=== PATIENT | male | born 1980 | race Caucasian/White ===

== ENCOUNTER 2024-02-25 19:11 | Emergency (ER) | payer OTHER ==
--- NOTE | 2024-02-25 20:57 | RAD REPORT ---
EXAM DESCRIPTION: RAD - Shoulder Left 2 View - 02/25/2024 7:47 pm CLINICAL HISTORY: fall, swelling;Pain COMPARISON: No comparisons TECHNIQUE: Internal and external rotation views of the left shoulder were obtained. FINDINGS: There is no fracture or dislocation. AC joint mild degenerative changes. No acute or suspi cious findings. IMPRESSION: No acute osseus abnormality. Mild left AC joint degenerative changes.
--- NOTE | 2024-02-25 21:00 | EDPHYS ---
Physician Documentation [facility] Name: Shivam Vu Age: 43 yrs Sex: Male : 1980 Arrival Date: 02/25/2024 Time: 19:11 Bed DX3 Private MD: ED Physician Billy Mohr HPI: 02/24 20:50 This 43 yrs old Male presents to ER via [employer] with complaints of shoulder rn pain. 20:50 The patient or guardian complains of contusion, decreased range of motion, an injury. rn left shoulder. Onset: The symptoms/episode began/occurred today. Modifying factors: the symptoms are alleviated by nothing. The symptoms are aggravated by movement, rotation of arm. Associated signs and symptoms: Pertinent negatives: chest pain, neck pain. Severity of symptoms: At their worst the symptoms were moderate, in the emergency department the symptoms are unchanged. The patient has not experienced similar symptoms in the past. The patient has not recently seen a physician. Patient reports fell out of bunk in senior care. Landed on left shoulder with arm tucked in. Reports painful range of motion of the left shoulder. No other injury. Denies head injury. No neck or back pain. No rib pain.. Historical: - Allergies: 19:26 No Known Allergies; lg3 - Home Meds: 19:26 None [Active]; lg3 - PMHx: 19:26 hep c; lg3 - PSHx: 19:26 right hand; lg3 - Immunization history:: Adult Immunizations up to date. - Infectious Disease History:: Denies. - Social history:: Smoking status: Patient denies any tobacco usage or history of. Patient/guardian denies using alcohol, street drugs. - Family history:: not pertinent. - Hospitalizations: : No recent hospitalization is reported. ROS: 20:50 Constitutional: Negative for fever, chills, and weight loss, Neck: Negative for injury, rn pain, and swelling, Cardiovascular: Negative for chest pain, palpitations, and edema, Respiratory: Negative for shortness of breath, cough, wheezing, and pleuritic chest pain, Abdomen/GI: Negative for abdominal pain, nausea, vomiting, diarrhea, and constipation, Back: Negative for injury and pain, MS/Extremity: Positive for left shoulder injury and pain Neuro: Negative for headache, weakness, numbness, tingling, and seizure, Exam: 20:50 Constitutional: This is a well developed, well nourished patient who is awake, alert, rn and in no acute distress. Ambulatory to room without difficulty or assistance Head/Face: Normocephalic, atraumatic. Neck: No midline cervical tenderness Chest/axilla: No rib tenderness or crepitus Respiratory: No increased work of breathing, no retractions or nasal flaring. Back: No spinal tenderness Neuro: Awake and alert, GCS 15 Vital Signs: 19:24 BP 189 / 91; Pulse 89; Resp 17 S; Temp 97.9(O); Pulse Ox 98% on R/A; Weight 97.52 kg lg3 (R); Height 5 ft. 11 in. ; Pain 10/10; 21:23 BP 174 / 89; Pulse 91; Resp 15 S; Temp 98.4(O); Pulse Ox 99% on R/A; lg3 19:24 Body Mass Index 29.99 (97.52 kg, 180.34 cm) lg3 19:24 Pain Scale: Adult lg3 MDM: 19:19 Patient medically screened. rn 20:59 Differential diagnosis: Anterior dislocation with fracture, Anterior dislocation rn without fracture, humeral head fracture, glenoid fracture. Data reviewed: vital signs, nurses notes, radiologic studies, plain films, and as a result, I will discharge patient. Independent interpretation of the following test(s) in the Emergency Department X-Ray: My interpretation is X-ray left shoulder images negative for acute fracture or dislocation per my interpretation. Counseling: I had a detailed discussion with the patient and/or guardian regarding the historical points, exam findings, and any diagnostic results supporting the discharge/admit diagnosis, radiology results, the need for outpatient follow up, to return to the emergency department if symptoms worsen or persist or if there are any questions or concerns that arise at home. Special discussion: I discussed with the patient/guardian in detail that at this point there is no indication for admission to the hospital. It is understood, however, that if the symptoms persist or worsen the patient needs to return immediately for re-evaluation. 02/24 19:22 Order name: XRAY Shoulder LEFT 2 view; Complete Time: 20:58 rn Administered Medications: 21:22 Drug: [place] PO 10 mg-325 mg 1 tabs PO once Route: PO; lg3 21:22 Follow up: Response: No adverse reaction; Marked relief of symptoms lg3 Disposition Summary: 02/25/24 21:00 Discharge Ordered Notes: Location: Home rn Problem: new rn Symptoms: have improved rn Condition: Stable rn Diagnosis - Contusion of left shoulder rn Followup: rn - With: Private Physician - When: As needed - Reason: Recheck today's complaints, Re-evaluation by your physician Discharge Instructions: - Discharge Summary Sheet rn - Shoulder Pain rn - Shoulder Sprain rn Forms: - Medication Reconciliation Form rn - Antibiotic burner operator - Prescription Opioid Use rn - Patient Portal Instructions rn - Leadership Thank You Letter rn Signatures: Dispatcher [employer] Billy Chung MD MD rn Able, Lacie, RN RN lg3
--- NOTE | 2024-02-25 21:00 | ER ---
Nurse's Notes [facility] Name: Shivam Vu Age: 43 yrs Sex: Male : 1980 Arrival Date: 02/25/2024 Time: 19:11 Bed DX3 Private MD: Diagnosis: Contusion of left shoulder Presentation: 02/24 19:24 Chief complaint: Patient states: fall from standing position landing on left shoulder. lg3 pain to left shoulder 03/29. Coronavirus screen: Client denies travel out of the [place] in the last 14 days. At this time, the client does not indicate any symptoms associated with coronavirus-19. Ebola Screen: No symptoms or risks identified at this time. Initial Sepsis Screen: Does the patient meet any 2 criteria? No. Patient's initial sepsis screen is negative. Does the patient have a suspected source of infection? No. Patient's initial sepsis screen is negative. Risk Assessment: Do you want to hurt yourself or someone else? Patient reports no desire to harm self or others. Onset of symptoms was February 25, 2024. 19:24 Method Of Arrival: [employer]: [place] [employer] lg3 19:24 Acuity: PHIL 4 lg3 Triage Assessment: 19:26 General: Appears in no apparent distress. uncomfortable, Behavior is calm, cooperative. lg3 Pain: Complains of pain in anterior aspect of left shoulder and posterior aspect of left shoulder. EENT: No deficits noted. No signs and/or symptoms were reported regarding the EENT system. Neuro: No deficits noted. Hanley Agitation-Sedation Scale (RASS): 0 - Alert and Calm Level of Consciousness is awake, alert, obeys commands, Oriented to person, place, time, situation. Cardiovascular: No deficits noted. Denies chest pain, shortness of breath, Capillary refill < 3 seconds Clubbing of nail beds is absent JVD is absent Patient's skin is warm and dry. Respiratory: No deficits noted. Airway is patent Respiratory effort is even, unlabored, Respiratory pattern is regular, symmetrical. GI: No deficits noted. No signs and/or symptoms were reported involving the gastrointestinal system. : No deficits noted. No signs and/or symptoms were reported regarding the genitourinary system. Derm: No deficits noted. No signs and/or symptoms reported regarding the dermatologic system. Skin is intact, is healthy with good turgor, Skin is dry, Skin is normal, Skin temperature is warm. Musculoskeletal: Circulation, motion, and sensation intact. Range of motion: intact in all extremities, Reports pain in anterior aspect of left shoulder and posterior aspect of left shoulder. Historical: - Allergies: 19:26 No Known Allergies; lg3 - Home Meds: 19:26 None [Active]; lg3 - PMHx: 19:26 hep c; lg3 - PSHx: 19:26 right hand; lg3 - Immunization history:: Adult Immunizations up to date. - Infectious Disease History:: Denies. - Social history:: Smoking status: Patient denies any tobacco usage or history of. Patient/guardian denies using alcohol, street drugs. - Family history:: not pertinent. - Hospitalizations: : No recent hospitalization is reported. Screenin:28 [facility] ED Fall Risk Assessment (Adult) History of falling in the last 3 months, lg3 including since admission Yes- single mechanical fall (1 pt) Confusion or Disorientation No (0 pts) Intoxicated or Sedated No (0 pts) Impaired Gait No (0 pts) Mobility Assist Device Used No (0 pt) Altered Elimination No (0 pt) Score/Fall Risk Level 0 - 2 = Low Risk Oriented to surroundings, Maintained a safe environment, Educated pt \T\ family on fall prevention, incl call for assistance when getting out of bed, Assessed \T\ reinforced patient's understanding of fall precautions. Abuse screen: Denies threats or abuse. Denies injuries from another. Nutritional screening: No deficits noted. Tuberculosis screening: No symptoms or risk factors identified. Assessment: 19:28 General: see triage assessment. lg3 21:22 Reassessment: Patient appears in no apparent distress at this time. No changes from lg3 previously documented assessment. Patient and/or family updated on plan of care and expected duration. Pain level reassessed. Patient is alert, oriented x 3, equal unlabored respirations, skin warm/dry/pink. Vital Signs: 19:24 BP 189 / 91; Pulse 89; Resp 17 S; Temp 97.9(O); Pulse Ox 98% on R/A; Weight 97.52 kg lg3 (R); Height 5 ft. 11 in. ; Pain 10/10; 21:23 BP 174 / 89; Pulse 91; Resp 15 S; Temp 98.4(O); Pulse Ox 99% on R/A; lg3 19:24 Body Mass Index 29.99 (97.52 kg, 180.34 cm) lg3 19:24 Pain Scale: Adult lg3 ED Course: 19:18 Patient arrived in ED. lg3 19:19 Billy Mohr MD is Attending Physician. rn 19:24 Shayla Ponce RN is Primary Nurse. lg3 19:26 Triage completed. lg3 19:26 Arm band placed on left wrist. lg3 19:28 Patient has correct armband on for positive identification. lg3 19:49 XRAY Shoulder LEFT 2 view In Process Unspecified. EDMS 21:22 No provider procedures requiring assistance completed. Patient did not have IV access lg3 during this emergency room visit. Administered Medications: 21:22 Drug: [place] PO 10 mg-325 mg 1 tabs PO once Route: PO; lg3 21:22 Follow up: Response: No adverse reaction; Marked relief of symptoms lg3 Medication: 21:23 VIS not applicable for this client. lg3 Outcome: 21:00 Discharge ordered by . rn 21:22 Discharged to [employer] lg3 21:22 Condition: stable 21:22 Discharge instructions given to patient, Instructed on discharge instructions, follow up and referral plans. Demonstrated understanding of instructions, follow-up care, 21:23 Patient left the ED. lg3 Signatures: Dispatcher [employer] EDMS Billy Mohr MD MD rn Able, Lacie, RN RN lg3
[2024-02-25] MEDS ORDERED: HYDROCODONE/APAP 10/325 TAB ONE (21:02)
[2024-02-25 21:56] VITALS: BP 174/89; TEMP 98.4; O2SAT 99
== END 2024-02-25 21:23 | disposition home or self-care (01) ==
LOC: ER 19:11
DX: S40.012A Contusion of left shoulder, initial encounter (principal)
CPT/HCPCS: 99283